=== PATIENT | male | born 1965 | race Caucasian/White ===

== ENCOUNTER → 2017-05-27 | Outpatient (CLI) | payer OTHER ==
[~2017-05-27] MED LIST: ATOXIMETIN-B1 CAP PO; CILOXAN 5 ML5 M1 OP; CILOXAN 5 ML5 ML OT; REQUIP0.25 MG PO
== END | disposition home or self-care (01) ==
LOC: RAD 13:52
DX: M79.671 Pain in right foot (principal); M79.89 Other specified soft tissue disorders

== ENCOUNTER 2017-09-12 06:32 | Emergency (ER) | payer OTHER ==
[~2017-09-12] VITALS: Ht 175.2 cm; Wt 122.5 kg
[2017-09-12] MEDS ORDERED: CYCLOBENZAPRINE10 MG PO (06:40)
[2017-09-12] MEDS ORDERED: ATORVASTATIN CA20 M1 PO (06:40)
[2017-09-12] MEDS ORDERED: DEXAMETHASONE0.75 MG PO (06:40)
[2017-09-12] MEDS ORDERED: Lopressor25 MG PO (06:41)
[2017-09-12] MEDS ORDERED: CLOPIDOGREL75 MG PO (06:41)
[2017-09-12] MEDS ORDERED: LISINOPRIL2.5 MG PO (06:41)
== END 2017-09-12 06:56 | disposition home or self-care (01) ==
LOC: ED 06:32
DX: M54.5 Low back pain (principal); M79.604 Pain in right leg; Z88.8 Allergy status to other drugs, medicaments and biological substances; Z79.899 Other long term (current) drug therapy